=== PATIENT | male | born 1985 | race Caucasian/White ===

== ENCOUNTER 2016-11-03 12:41 | Emergency (ER) | payer OTHER ==
[2016-11-03 12:52] VITALS: BP 135/82; PULSE 49; RESP 14; TEMP 98.2; O2SAT 97
--- NOTE | 2016-11-03 13:52 | UCPHY ---
H & P Time Seen by Provider: 11/03/16 13:36 Patient Type: Established HPI/ROS: This patient presents with a chief complaint of right ear pain which began 2 days ago. The patient has been ill for 3 weeks with sore throat, nasal congestion and cough but no fever. He also denies chest pain or shortness of breath. His energy level has been mildly diminished. He denies headache or myalgias. Smoking Status: Never smoked Physical Exam: This is a well-developed well-nourished male who is in no acute distress. He is alert lucid and has a normal mental status and gait. Head: Atraumatic Eyes: No conjunctival injection Ears: Normal color, no fluid noted, no evidence of infection. Pharynx: There is minimal injection and some lymphoid hyperplasia but no exudates. Neck: No adenopathy, no tenderness, carotid pulsations symmetric Chest: Breath sounds are clear and symmetric without wheezes rhonchi or rales. There is no respiratory distress. Neurologic: At baseline. Face: There is no significant tenderness over the facial sinuses. Skin: No rash identified. Constitutional: Initial Vital Signs Temperature (C) 36.8 C 11/03/16 12:50 Heart Rate 49 L 11/03/16 12:50 Respiratory Rate 14 11/03/16 12:50 Blood Pressure 135/82 H 11/03/16 12:50 O2 Sat (%) 97 11/03/16 12:50 O2 Delivery Mode Room Air Allergies/Adverse Reactions: No Known Allergies Allergy (Verified 11/03/16 12:49) Home Medications: Medication Instructions Recorded Zoloft 100mg (RX) 09/27/14 Xanax 11/03/16 Medical Decision Making Differential Diagnosis: I believe this patient has ear pain secondary to eustachian tube dysfunction. I find no evidence of bacterial infection and do not believe that antibiotics are indicated. Departure - Departure Disposition: Home, Routine, Self-Care Clinical Impression: Acute bronchitis Qualifiers: Bronchitis organism: unspecified organism Qualified Code(s): J20.9 - Acute bronchitis, unspecified Upper respiratory infection Qualifiers: URI type: unspecified URI Qualified Code(s): J06.9 - Acute upper respiratory infection, unspecified Condition: Good Instructions: Upper Respiratory Infection (ED), Acute Bronchitis (ED) Additional Instructions: If your symptoms have not resolved in another week you should be re-evaluated. Cause for concern would be fever, chest pain or shortness of breath. Adult Pain & Fever Control: We recommend Acetaminophen (Tylenol) and Ibuprofen (Motrin, Advil) for pain and fever control. When fever is high or pain severe, both drugs can be used at the same time, but at different intervals. Please note the time differences. Your dose is: Acetaminophen [650]mg every 4 to 6 hours ibuprofen [600]mg every [6] hours with food OR naproxen Sodium (Aleve) [440]mg every 12 hours. Note: do not take Acetaminophen with Hydrocodone (Vicodin, Lortab) or Oxycodone (Percocet). These medications also contain Acetaminophen. No more than 3000 mg of Acetaminophen should be taken in 24 hours (for an adult) . The maximal dose of ibuprofen that it is safe in a 24-hour period is 2400 mg. You may take 400 mg every 4 hours, 600 mg every 6 hours or 800 mg every 8 hours safely. Referrals: Edu Rangel MD [Primary Care Provider] - As per Instructions - PQRS PQRS Measurement: Not applicable
== END 2016-11-03 14:02 | disposition home or self-care (01) ==
LOC: CED 12:41
DX: J20.9 Acute bronchitis, unspecified (principal); J06.9 Acute upper respiratory infection, unspecified
CPT/HCPCS: 99213-PO; G0463-PO